=== PATIENT | female | born 1945 | race Caucasian/White ===

== ENCOUNTER 2018-07-05 15:46 | Inpatient (IN) | payer OTHER ==
[2018-07-05] MEDS ORDERED: oxyCODONE IR 5 MG TAB PO PRN (16:26)
[2018-07-05] MEDS ORDERED: SENNOSIDES 1 TAB PO PRN (16:51)
[2018-07-05] MEDS: oxyCODONE IR 5 MG TAB PO PRN ×2 (17:05→20:10)
--- NOTE | 2018-07-05 17:21 | PDOREHIP ---
Admission [facility] - Admission - 3 Day Assessment Period Admission Date/Day 1: 07/05/18 Day 2: 07/06/18 Day 3: 07/07/18 - Active Diagnoses Comorbidities and Co-existing Conditions at Admission: [id number]. PVD or PAD - Skin Conditions Unhealed Pressure Ulcer (1 or more/Stage 1 or >)-Admission: 0. No # Stage 1 Pressure Ulcers-Admission: 0 # Stage 2 Pressure Ulcers-Admission: 0 # Stage 3 Pressure Ulcers-Admission: 0 # Stage 4 Pressure Ulcers-Admission: 0 # Unstageable Pressure Ulcers (Non-remove Dress)-Admission: 0 # Unstageable Pressure Ulcers (Slough/Eschar)-Admission: 0 # Unstageable Pressure Ulcers (Deep Tissue Injury)-Admission: 0
[2018-07-05] MEDS: ACETAMINOPHEN 500 MG TAB PO SCH ×2 (18:07→23:12)
--- NOTE | 2018-07-05 18:07 | GHP ---
POST ADMISSION PHYSICIAN EVALUATION AND REHABILITATION TREATMENT PLAN DATE OF ADMISSION: 07/05/2018 DATE OF EVALUATION: 07/05/2018. TIME OF EVALUATION: 1615. REFERRING FACILITY: [facility]. REFERRING PHYSICIAN: Dr. Starr IMPAIRMENT GROUP: 5.3. DATE OF ONSET: 06/11/2018. CONSULTING PHYSICIANS: There was consultation with the Internal Medicine service. REHABILITATION DIAGNOSIS: Debility status post right ygjks-cjn-knmo amputation. ETIOLOGIC DIAGNOSIS: Unilateral lower limb above the knee. DATE OF SURGERY: 06/24/2018. HISTORY OF PRESENT ILLNESS: This patient has a history of peripheral vascular disease with multiple prior procedures on the right lower extremity. She was admitted to [facility] on 06/11/2018, with signs and symptoms of critical limb ischemia. In the hospital, she had multiple procedures which ultimately were unsuccessful and there was a njxgr-iif-lajs amputation, which subsequently became necrotic. Finally, there was an above-the -knee amputation. The hospital complications included hospital-acquired pneumonia, loose stools with a negative testing for Clostridium difficile, delirium, hypertension, leukocytosis, anemia for which there was a bone marrow biopsy which ruled out malignancy, peripheral neuropathy, phantom limb pain, and rhabdomyolysis. She was eventually medically stabilized and was appropriate for inpatient rehabilitation. STUDIES AND LABS IN THE HOSPITAL: Yesterday, sodium was slightly low at 135 and BUN was high at 31 with a creatinine of 0.6. Otherwise, a basic metabolic profile was normal. Liver function tests on July 02 showed an elevated alkaline phosphatase at 254 and a low albumin at 2.8. There was an elevated lipase on July 02, at 594. Hematology on July 04, showed an elevated white count of 19.23, which had been stable since the previous day. Hemoglobin was 8.4, hematocrit was 27.6, platelet count was 203. PRECAUTIONS: She is a fall risk. ACTIVE COMORBIDITIES: She has no tier 1, tier 2, or tier 3 comorbidities. PAST MEDICAL HISTORY: 1. Peripheral vascular disease due to intimal hyperplasia. 2. Hypertension. 3. Rheumatic fever. 4. Peripheral neuropathy. PAST SURGICAL HISTORY: She has had multiple vascular angioplasties and bypass procedures on the right lower extremity. PRE-HOSPITAL MEDICATIONS: 1. Carvedilol 25 mg p.o. b.i.d. with meals. 2. Clopidogrel 75 mg p.o. daily. 3. Amlodipine 10 mg p.o. daily. 4. Aspirin 81 mg p.o. daily. 5. Gabapentin 600 mg p.o. b.i.d. 6. Furosemide 40 mg p.o. b.i.d. 7. Oxycodone 5 mg p.o. q.4 hours p.r.n. ALLERGIES: There are no drug allergies, but there are allergies listed to alcohol which causes migraines, pickles which cause mouth sores, coffee which causes migraines, and tomato which causes mouth sores. PSYCHOSOCIAL HISTORY: She is . She lives with her . 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 She is a nonsmoker and does not use alcohol. FAMILY HISTORY: Father had diabetes mellitus type 2. Mother had multiple sclerosis. REVIEW OF SYSTEMS: She reports that she has pain. There is phantom limb pain and there is also incisional pain and she has some pain on her right pelvis where the bone marrow biopsy was done. She is ready for her next oxycodone dose. She denies cough or dyspnea fevers or chills, nausea or vomiting. She has a reduced appetite and she has had frequent soft stools, but not aquiles diarrhea. She has no dysuria or urinary frequency. She denies headache, vision changes, weakness, numbness or tingling of the extremities. She denies difficulty swallowing. She reports poor sleep. Often, she reports poor sleep for 2 nights in a row and on the 3rd night she will have a good night's sleep. She has not been sleeping well lately in the hospital. Otherwise, a 10-point review of systems is negative. PHYSICAL EXAM: VITAL SIGNS: Blood pressure is 151/98, heart rate is 77, respiratory rate is 18, oxygen saturation is 95% on room air. Temperature is 36.8 degrees centigrade. Her weight is 47.9 kg for a body mass index of 19.3. GENERAL: This is a well-nourished, well-developed, but pale and chronically ill -appearing woman, sitting up in bed, dressed in street clothes, cooperative and in no acute distress. HEENT: Extraocular movements are intact. Pupils are equal, round, reactive to light. Mucous membranes are moist. Dentition is in good condition. She has an uncrowded airway, Mallampati class 1. NECK: Supple. HEART: There is a regular rate and rhythm with no murmurs, rubs, or gallops. LUNGS: Clear to auscultation bilaterally. ABDOMEN: Soft, nontender , nondistended with normoactive bowel sounds and no hepatosplenomegaly. EXTREMITIES: She has a right-sided bqakh-ojj-ugrq amputation. Her left lower extremity is without edema or clubbing. Dorsalis pedis pulses 2+. There is no cyanosis in the extremities. NEUROLOGIC: She is alert and oriented x3. Cranial nerves 2-12 are grossly intact. There is no focal weakness. Sensation is intact to light touch. SKIN: There is mild erythema over the coccyx and proximal medial buttocks. It is blanching and there is no skin breakdown. There is no erythema, drainage, or swelling at the site of the bone marrow biopsy over her right posterior pelvis. CURRENT LEVEL OF FUNCTION PER THE PRE-ADMISSION SCREEN: Regarding diet, feeding , and swallowing, she was taking a regular diet. For grooming, she required standby assist for setup to brush her teeth and brush her hair while seated. Regarding dressing, she was dependent to don her stump protector. Bed mobility required minimal assist for supine to sit on the edge of the bed or standby assist with the head of the bed elevated. Transfers required moderate assistance on her left lower extremity from the edge of the bed for sit to stand using a front-wheeled walker and minimal assist to pivot or hop to a recliner. Balance seated required standby assist. Endurance was fair. She was able to ambulate 3 feet with a front-wheeled walker with contact guard to standby assist and a 2nd person, and she was able to ambulate 10 feet with contact guard assist of 1 person and standby assist of 1 using small steps. She was considered to have normal cognition and communication. On today's exam, there is no change from the preadmission screen. IMPRESSION: This is a 73-year-old woman with long-standing peripheral vascular disease due to intimal hyperplasia, especially on the right lower extremity. She has had multiple procedures on the right lower extremity but was rehospitalized with critical limb ischemia. She had further vascular procedures , a right-sided bjany-kpy-zsxp amputation, continued issues with poor blood flow and necrotic tissue, and finally a right-sided luzix-wnc-icqa amputation. She had a complicated hospital course including hospital-acquired pneumonia, abnormalities in her blood counts including anemia, a low reticulocyte count, thrombocytopenia and leukocytosis, but a bone marrow biopsy that was negative for malignancy. There is a history of essential thrombocytosis. She had hyponatremia. She had adjustment of medications for hypertension. She ultimately was stabilized and is appropriate for inpatient rehabilitation. Her goal is to complete a rehabilitation stay and return home with her and supportive services. For a safe discharge, she will need to achieve modified independence for eating, grooming, bed mobility, toileting, dressing, and transfers. She will need to be able to ambulate with a front-wheeled walker for household distances and negotiate a flight of stairs using a crutch with supervision. She may continue to require assistance with bathing. She will need to have adequate pain management and her incision will need to be healing well. She will likely need assistance for household management, and shopping. She will have therapy with physical therapy and occupational therapy for 90 minutes per day for each discipline on 5-7 days per week. Her expected duration of stay is 7-10 days. It is expected that upon discharge, she will continue to benefit from home health services including nursing, a nurse's aide, occupational therapy and physical therapy. Additionally, she will benefit from an amputation support group. PLAN: 1. Debility status post right-sided tierb-fwe-uhgn amputation on 06/24/2018. PT and OT to optimize mobility and activities of daily living toward the independent to modified-independent level. 2. Hypertension. She has an elevated blood pressure on admission today. Continue current medications and monitor her blood pressure given that she is already on maximal dose of amlodipine and a high dose of carvedilol. Next step might be a diuretic or an ALEN inhibitor or ARB. She had mild dehydration on her labs in the hospital, so might hesitate with a diuretic. Will order a basic metabolic profile in the morning to assess her renal function and hydration status. 3. Peripheral vascular disease. Continue aspirin and clopidogrel. 4. Pain including phantom limb pain. Continue gabapentin. Continue oxycodone. Adjust medications as needed. 5. Insomnia this is partly a chronic issue for her, but it is her best interest to have adequate sleep so that she can have maximal participation in rehabilitation. I have ordered melatonin at 3 mg scheduled at bedtime and trazodone 50 mg at bedtime as needed if the melatonin does not work. It is likely that melatonin will lose its efficacy after several days to a week at which point it could be discontinued or changed to as needed. The trazodone might need to be scheduled. 6. Leukocytosis, anemia, and history of essential thrombocytosis. There is no malignancy. The anemia is likely related to chronic disease as there is a report in the hospital notes of a low TIBC as well as a low iron. I have ordered a CBC for the morning as well as a reticulocyte count and an iron panel. If she is recovering from the chronic disease condition, she may have an improved reticulocyte count and she may be frankly iron deficient after her surgeries. 7. Hospital-acquired pneumonia appears to have been fully treated and she is not needing any oxygen at present. We will continue incentive spirometry. 8. Diarrhea, likely was antibiotic-associated and possibly due to use of laxatives. As she is on opiates, will order senna on a p.r.n. basis. She has had a negative test for Clostridium difficile. 9. Prophylaxis. It is unclear whether she requires any pharmacologic prophylaxis. She was treated with heparin at the hospital. Continue aspirin and clopidogrel. 10. Followup: She is to follow up with vascular surgeon, Dr. Starr, or his physician ophthalmic medical assistant on 07/26/2018, at 10:45 a.m. at the Vascular [place] of the [facility] at [facility]. Wound lyle are to remain until she is seen in clinic. Liu-Schmid drain can be removed when output is less than 100 cc per day. The clinic phone number is [phone]. /[id number]/MODL MTDD
[2018-07-05] MEDS: CARVEDILOL 25 MG TAB PO SCH (18:08)
[2018-07-05] MEDS: MELATONIN 3 MG TAB PO SCH (20:49)
[2018-07-05] MEDS: GABAPENTIN 300 MG CAP PO SCH (20:49)
[2018-07-06] MEDS: ACETAMINOPHEN 500 MG TAB PO SCH ×4 (05:53→23:59)
[2018-07-06] MEDS: GABAPENTIN 300 MG CAP PO SCH ×3 (05:53→20:24)
[2018-07-06] MEDS: oxyCODONE IR 5 MG TAB PO PRN ×5 (08:01→20:27)
[2018-07-06] MEDS: CLOPIDOGREL BISULFATE 75 MG TAB PO SCH (08:02)
[2018-07-06] MEDS: CARVEDILOL 25 MG TAB PO SCH ×2 (08:02→17:16)
[2018-07-06] MEDS: ASPIRIN EC 81 MG TAB PO SCH (08:02)
[2018-07-06 08:16] LABS: PLATELET COUNT 196 10^3/uL (150-400)
--- NOTE | 2018-07-06 13:03 | SOAPPROG ---
SOAP Progress Note Assessment/Plan: Assessment: DEBILITY-status post right-sided above knee amputation. Incision looks good. She has a little bit of hypersensitivity distally. She would benefit from desensitize a sabillon techniques. Physical occupational therapy to optimize mobility and activities of daily living towards the independent to modified independent level Hypertension -currently on amlodipine 10 mg q.day and carvedilol 50 mg twice daily. Blood pressure this morning was 153/94. She had mild dehydration on her labs in the hospital so a diuretic should be used with caution. Labs from this morning as follows: Sodium 136, potassium 4.6, BUN 23, creatinine 0.6.. Will add lisinopril 2.5 mg q.a.m.. Discussed with Pharmacy who verified that there are no significant cross reactants with her current med list Peripheral vascular disease-continue aspirin and clopidogrel. Dr. Agudelo was unclear as to why she was on a statin and this should be further early discussed with patient prior to discharge. Phantom limb pain-continue gabapentin. Current dose is 600/600/900. Will consider increasing this to 2700 daily. She has oxycodone written for 5-10 mg q.3 hours. Recommend desensitization techniques to residual limb Insomnia-there is some indication that this may be a chronic condition. Melatonin 3 mg at bedtime as well as trazodone 50 mg at bed tone as needed if the melatonin does not work. Leukocytosis-patient reports this is secondary to a central thrombocytosis. CBC ordered for this morning. Reticulocyte an iron panel is pending. Hospital acquired pneumonia-previously treated. Currently asymptomatic. Breath sounds are clear Diarrhea-most likely antibiotic associated and also possibly due to use of laxatives. Since she is on opioids she has senna on order for a p.r.n. Basis. Stool sample was negative for Clostridium difficile DVT prophylaxis continue aspirin and clopidogrel Follow-up: She is to follow up with vascular surgeon, Dr. Starr or his PA on 07/26/2018 at 10:45 a.m. at the vascular [place] of the [facility]. Wound lyle are to remain until she is seen in clinic. Liu-Schmid drain can be removed when output is less than 100 cc per day. The clinic phone number is [phone] Plan: 07/06/18 13:03 Subjective: SHE REPORTS SIGNIFICANT PHANTOM LIMB PAIN WHICH SHE RATES 8/10. SHE DENIES INCISIONAL PAIN. SHE REPORTS THAT SHE HAD A BAD NIGHT LAST NIGHT AND FELT DELIRIOUS. SHE IS UNSURE IF SHE TOOK ANY PAIN MEDICATIONS. SHE ALSO REPORTS THAT DUE TO ESSENTIAL THROMBOCYTOPENIA, HER WHITE COUNT TENDS TO RUN AROUND 13. Objective: Vital Signs Temp Pulse Resp BP Pulse Ox 36.8 C 64 16 153/94 H 94 07/06/18 06:07 07/06/18 06:07 07/06/18 06:07 07/06/18 06:07 07/06/18 06:07 Laboratory Results 07/06/18 06:15 07/06/18 06:15 07/05/18 07/06/18 07/07/18 05:59 05:59 05:59 Intake Total 450 240 Output Total 1600 Balance -1150 240 Physical Exam - Physical Exam General Appearance: WD/WN, alert, no apparent distress Respiratory: lungs clear, normal breath sounds Abdomen: non-tender, soft Skin: normal color, warm/dry, other (RIGHT ABOVE KNEE AMPUTATION RESIDUAL LIMB IS INSPECTED AFTER THE DRESSING IS REMOVED. SUTURES AND LYLE IN PLACE. SMALL AMOUNT OF INCISIONAL ERYTHEMA. NO INDURATION. NO DISCHARGE. THE PROXIMAL DRAIN IN PLACE AND DRAINING WELL.) Extremities: No swelling, No Misael's sign (FULL RIGHT KNEE EXTENSION, 95 RIGHT KNEE FLEXION) Neuro/Psych: No motor weakness (5/5 STRENGTH RIGHT HIP FLEXORS, HIP ABDUCTORS) ICD10 Worksheet Patient Problems: Problems Problem Status Onset Above knee amputation of right lower extremity Acute HTN (hypertension) Acute
[2018-07-06] MEDS: LISINOPRIL 2.5 MG TAB PO SCH (14:13)
[2018-07-06] MEDS: MELATONIN 3 MG TAB PO SCH (20:24)
[2018-07-07] MEDS: ACETAMINOPHEN 500 MG TAB PO SCH ×3 (05:53→17:43)
[2018-07-07] MEDS: GABAPENTIN 300 MG CAP PO SCH (05:53)
[2018-07-07] MEDS: oxyCODONE IR 5 MG TAB PO PRN ×7 (07:33→22:02)
[2018-07-07] MEDS: CLOPIDOGREL BISULFATE 75 MG TAB PO SCH (08:35)
[2018-07-07] MEDS: CARVEDILOL 25 MG TAB PO SCH ×2 (08:35→17:43)
[2018-07-07] MEDS: ASPIRIN EC 81 MG TAB PO SCH (08:35)
[2018-07-07] MEDS: LISINOPRIL 2.5 MG TAB PO SCH (08:35)
--- NOTE | 2018-07-07 09:48 | SOAPPROG ---
SOAP Progress Note Assessment/Plan: Assessment: DEBILITY-status post right above knee amputation. Incision looks good. She has a little bit of hypersensitivity distally. She would benefit from desensitize a sabillon techniques. Physical occupational therapy to optimize mobility and activities of daily living towards the independent to modified independent level Hypertension -Currently on amlodipine 10 mg q.day and carvedilol 50 mg twice daily. ADDED LISINOPRIL 2.5 MG Q.A.M. BEGINNING YESTERDAY. BLOOD PRESSURE THIS MORNING 125/90. HEART RATE 72 AND REGULAR. Labs from YESTERDAY as follows: Sodium 136, potassium 4.6, BUN 23, creatinine 0.6.. Will add lisinopril 2.5 mg q.a.m.. RETICULOCYTE COUNT HIGH AT 4.05. RED BLOOD CELL COUNT LOW AT 2.98. 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 Dr. Agudelo was unclear as to why she was on a statin and this should be further early discussed with patient prior to discharge. Phantom limb pain-continue gabapentin. Current dose is 600/600/900. WILL INCREASE GABAPENTIN TO 900 MG THREE TIMES DAILY. INFORMED PATIENT OF MEDICATION DOSE CHANGE. She has oxycodone written for 5-10 mg q.3 hours. Recommend desensitization techniques to residual limb Insomnia-there is some indication that this may be a chronic condition. Melatonin 3 mg at bedtime as well as trazodone 50 mg at bed tone as needed if the melatonin does not work. SHE CURRENTLY DOES NOT 1 OF SLEEP A Leukocytosis-patient reports this is secondary to ESSENTIAL thrombocytosis. Hospital acquired pneumonia-previously treated. Currently asymptomatic. Breath sounds are clear Diarrhea-most likely antibiotic associated and also possibly due to use of laxatives. Since she is on opioids she has senna on order for a p.r.n. Basis. Stool sample was negative for Clostridium difficile DVT prophylaxis continue aspirin and clopidogrel Follow-up: She is to follow up with vascular surgeon, Dr. Starr or his PA on 07/26/2018 at 10:45 a.m. at the vascular [place] of the [facility]. Wound lyle are to remain until she is seen in clinic. Liu-Schmid drain can be removed when output is less than 100 cc per day. The clinic phone number is [phone] Plan: 07/06/18 13:03 07/07/18 09:48 Subjective: She reports feeling sleepy during the daytime. She does not want a sleep aid. She does not feel dizzy or lightheaded. She reports right phantom limb pain as bothersome and rated as 8/10. Objective: Vital Signs Temp Pulse Resp BP Pulse Ox 37.1 C 70 16 125/90 H 96 07/07/18 08:00 07/07/18 08:00 07/07/18 08:00 07/07/18 08:00 07/07/18 08:00 Laboratory Results 07/06/18 06:15 07/06/18 06:15 07/06/18 07/07/18 07/08/18 05:59 05:59 05:59 Intake Total 450 460 Output Total 1600 858 954 Balance -7374 -222 -857 Physical Exam - Physical Exam General Appearance: WD/WN, alert, no apparent distress EENT: other (Conjunctiva are not pale), No scleral icterus (R), No scleral icterus (L) Respiratory: lungs clear, normal breath sounds Extremities: No swelling, No Misael's sign Neuro/Psych: motor weakness, No cognition abnormalities ICD10 Worksheet Patient Problems: Problems Problem Status Onset Above knee amputation of right lower extremity Acute HTN (hypertension) Acute
[2018-07-07] MEDS: GABAPENTIN 400 MG CAP PO SCH ×2 (14:59→22:02)
[2018-07-07] MEDS: MELATONIN 3 MG TAB PO SCH (22:02)
[2018-07-08] MEDS: ACETAMINOPHEN 500 MG TAB PO SCH ×4 (01:06→20:01)
[2018-07-08] MEDS: oxyCODONE IR 5 MG TAB PO PRN ×3 (01:06→08:26)
[2018-07-08] MEDS: CARVEDILOL 25 MG TAB PO SCH ×2 (08:27→17:53)
[2018-07-08] MEDS: CLOPIDOGREL BISULFATE 75 MG TAB PO SCH (08:29)
[2018-07-08] MEDS: LISINOPRIL 2.5 MG TAB PO SCH (08:29)
[2018-07-08] MEDS: GABAPENTIN 400 MG CAP PO SCH ×3 (08:29→20:02)
[2018-07-08] MEDS: ASPIRIN EC 81 MG TAB PO SCH (08:29)
--- NOTE | 2018-07-08 11:21 | SOAPPROG ---
SOAP Progress Note Assessment/Plan: Assessment: DEBILITY-status post right above knee amputation. Residual limb distal incision with lyle and sutures in place. She is not scheduled to have follow -up with her surgeon until 07/26, however have asked case management contact her surgeon to see this can be moved up and also advise date of suture and staple removal. She has a little bit of hypersensitivity distally. She would benefit from desensitize a sabillon techniques. This was discussed with Physical therapy today during team conference. Physical occupational therapy to optimize mobility and activities of daily living towards the independent to modified independent level. DISCUSSED IN TEAM MEETING TODAY. CURRENT FIM SCORE IS 89. Hypertension -Currently on amlodipine 10 mg q.day and carvedilol 50 mg twice daily. ADDED LISINOPRIL 2.5 MG Q.A.M. . BLOOD PRESSURE THIS MORNING 153/93 if subsequent blood pressure checks later today remain elevated then will increase lisinopril to 5 mg q.a.m. RETICULOCYTE COUNT HIGH AT 4.05. RED BLOOD CELL COUNT LOW AT 2.98. 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 Dr. Agudelo was unclear as to why she was on a statin and this should be further early discussed with patient prior to discharge. Phantom limb pain-continue gabapentin. Decided to increase gabapentin to 800 three times daily instead of 900 three times daily. INFORMED PATIENT OF MEDICATION DOSE CHANGE. Pain management continues to be an issue. She is clearly over sedated this morning, nodding off several times during patient interview. Had long discussion regarding pain management strategy with patient today in presence of her nurse, Jud. Strategy will include beginning OxyContin 10 mg ID and oxycodone IR 5 mg q.4 hours p.r.n. breakthrough pain. Also changed to Tylenol to 1000 mg q.8 hours as the previous order was for 1000 mg Q 6 hr. Informed patient of opioid medication changes. She should only be given the oxycodone IR 5 mg for breakthrough pain greater than 6 Insomnia-there is some indication that this may be a chronic condition. Melatonin 3 mg at bedtime as well as trazodone 50 mg at bed tone as needed if the melatonin does not work. She was also encouraged to ask for the trazodone 50 mg at night in an attempt to decrease her tendency to ask for opioids to help her sleep. Leukocytosis-patient reports this is secondary to ESSENTIAL thrombocytosis. Hospital acquired pneumonia-previously treated. Currently asymptomatic. Breath sounds are clear Diarrhea-most likely antibiotic associated and also possibly due to use of laxatives. Since she is on opioids she has senna on order for a p.r.n. Basis. Stool sample was negative for Clostridium difficile DVT prophylaxis continue aspirin and clopidogrel LOWER ABDOMINAL MASS-POSSIBLY CHRONIC. WILL OBTAIN ABDOMINAL ULTRASOUND TODAY FOR FURTHER EVALUATION OF THIS. Follow-up: She is to follow up with vascular surgeon, Dr. Starr or his PA on 07/26/2018 at 10:45 a.m. at the vascular [place] of [facility]. Wound lyle are to remain until she is seen in clinic. Liu-Schmid drain can be removed when output is less than 100 cc per day. The clinic phone number is [phone] Plan: 07/06/18 13:03 07/07/18 09:48 07/08/18 11:22 07/08/18 11:26 Subjective: She is over sedated this morning. Nursing reports that she took oxycodone q.3 hours beginning last p.m.. She reports that she is taking this at night to help her sleep as well as every 3 hr during the day in anticipation of having increased right lower extremity pain. Today she reported right lower extremity phantom pain as 6/10. Objective: Vital Signs Temp Pulse Resp BP Pulse Ox 36.4 C 68 16 155/93 H 97 07/08/18 08:00 07/08/18 08:00 07/08/18 08:00 07/08/18 08:00 07/08/18 08:00 Laboratory Results 07/06/18 06:15 07/06/18 06:15 07/07/18 07/08/18 07/09/18 05:59 05:59 05:59 Intake Total 460 530 200 Output Total 291 2557 15 Balance -914 -0518 185 Physical Exam - Physical Exam General Appearance: other (Over sedated and nods out several times during patient interview with myself and nursing staff) Respiratory: lungs clear, normal breath sounds Cardiac/Chest: No edema Abdomen: normal bowel sounds, non-tender, soft, other (6 cm x 3 cm hard mass lower abdominal region which patient states was present from previous hospitalization, possibly from Lovenox injections) Skin: other (There is some erythema at the base of the JANY drain site. Sutures and lyle in place right residual limb and right groin. No erythema, induration or discharge.) Extremities: No swelling, No Misael's sign ICD10 Worksheet Patient Problems: Problems Problem Status Onset Above knee amputation of right lower extremity Acute HTN (hypertension) Acute
[2018-07-08] MEDS: traZODone 50 MG TAB PO PRN (20:02)
[2018-07-08] MEDS: MELATONIN 3 MG TAB PO SCH (23:22)
[2018-07-09] MEDS: oxyCODONE IR 5 MG TAB PO PRN ×2 (02:03→15:38)
[2018-07-09] MEDS: ACETAMINOPHEN 500 MG TAB PO SCH ×3 (05:40→21:36)
[2018-07-09] MEDS: LISINOPRIL 2.5 MG TAB PO SCH (08:46)
[2018-07-09] MEDS: GABAPENTIN 400 MG CAP PO SCH (08:46)
[2018-07-09] MEDS: CARVEDILOL 25 MG TAB PO SCH ×2 (08:47→18:15)
[2018-07-09] MEDS: ASPIRIN EC 81 MG TAB PO SCH (08:47)
[2018-07-09] MEDS: CLOPIDOGREL BISULFATE 75 MG TAB PO SCH (08:47)
--- NOTE | 2018-07-09 11:16 | SOAPPROG ---
SOAP Progress Note Assessment/Plan: Assessment: DEBILITY-status post right above knee amputation. WILL DISCUSS WITH PHYSICAL THERAPY TO SEE IF A LESS VOLUMINOUS RESIDUAL LIMB SPLIT CAN BE OBTAINED. Residual limb distal incision with lyle and sutures in place. She is not scheduled to have follow-up with her surgeon until 07/26, however have asked case management contact her surgeon to see this can be moved up and also advise date of suture and staple removal. She has a little bit of hypersensitivity distally. She would benefit from desensitize a sabillon techniques. This was discussed with Physical therapy today during team conference. Physical occupational therapy to optimize mobility and activities of daily living towards the independent to modified independent level. DISCUSSED IN TEAM MEETING TODAY. CURRENT FIM SCORE IS 89. Hypertension -BLOOD PRESSURE THIS MORNING SLIGHT ELEVATED AT 142/92, HOWEVER PRIOR BLOOD PRESSURE 102/56. THEREFORE WILL NOT MAKE ANY NEW CHANGES TO HER ANTIHYPERTENSIVES. Currently on amlodipine 10 mg q.day and carvedilol 50 mg twice daily. ADDED LISINOPRIL 2.5 MG Q.A.M. . BLOOD PRESSURE THIS MORNING 153/ 93 if subsequent blood pressure checks later today remain elevated then will increase lisinopril to 5 mg q.a.m. RETICULOCYTE COUNT HIGH AT 4.05. RED BLOOD CELL COUNT LOW AT 2.98. 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 Dr. Agudelo was unclear as to why she was on a statin and this should be further early discussed with patient prior to discharge. Phantom limb pain-continue gabapentin. WILL INCREASE GABAPENTIN TO 900 THREE TIMES DAILY TODAY. INFORMED PATIENT OF MEDICATION DOSE CHANGE. Pain management continues to be an issue. She is clearly over sedated this morning, nodding off several times during patient interview. Had long discussion regarding pain management strategy with patient YESTERDAY in presence of her nurse, Jud. Strategy will include beginning OxyContin 10 mg ID and oxycodone IR 5 mg q.4 hours p.r.n. breakthrough pain. Also changed to Tylenol to 1000 mg q.8 hours as the previous order was for 1000 mg Q 6 hr. Informed patient of opioid medication changes. She should only be given the oxycodone IR 5 mg for breakthrough pain greater than 6 Insomnia-PATIENT REPORTS SHE SLEPT BETTER LAST NIGHT BUT DID NOT ASK FOR TRAZODONE. AGAIN SHE WAS REMINDED TO ASK FOR TRAZODONE FOR INSOMNIA OPPOSED TO ASKING FOR OXYCODONE. there is some indication that this may be a chronic condition. Melatonin 3 mg at bedtime as well as trazodone 50 mg at bed tone as needed if the melatonin does not work. She was also encouraged to ask for the trazodone 50 mg at night in an attempt to decrease her tendency to ask for opioids to help her sleep. Leukocytosis-patient reports this is secondary to ESSENTIAL thrombocytosis. Hospital acquired pneumonia-previously treated. Currently asymptomatic. Breath sounds are clear Diarrhea-most likely antibiotic associated and also possibly due to use of laxatives. Since she is on opioids she has senna on order for a p.r.n. Basis. Stool sample was negative for Clostridium difficile DVT prophylaxis continue aspirin and clopidogrel LOWER ABDOMINAL MASS-ABDOMINAL ULTRASOUND OBTAINED YESTERDAY. RESULTS DISCUSSED WITH RADIOLOGIST OF [facility] WHO INFORMED THAT THIS MOST LIKELY WAS CHRONIC DUE TO SEROMA AND FIBROTIC WALL. DISCUSSED RESULTS WITH PATIENT TODAY. Follow-up: She is to follow up with vascular surgeon, Dr. Starr or his PA on 07/26/2018 at 10:45 a.m. at the vascular [place] [facility]. Wound lyle are to remain until she is seen in clinic. Liu-Schmid drain can be removed when output is less than 100 cc per day. The clinic phone number is [phone] Plan: 07/06/18 13:03 07/07/18 09:48 07/08/18 11:22 07/08/18 11:26 07/09/18 11:13 Subjective: She reports that she slept better last night. She feels rested this morning. She feels much less sedated since her pain medications were changed yesterday. She has some pain in the left great toe. Objective: Vital Signs Temp Pulse Resp BP Pulse Ox 36.6 C 73 16 142/92 H 93 07/09/18 05:40 07/09/18 05:40 07/09/18 05:40 07/09/18 05:40 07/09/18 05:40 Laboratory Results 07/06/18 06:15 07/06/18 06:15 07/08/18 07/09/18 07/10/18 05:59 05:59 05:59 Intake Total 530 945 430 Output Total 6025 1761 200 [facility] -[phone] Physical Exam - Physical Exam General Appearance: WD/WN, alert, other (Much more alert) Respiratory: lungs clear, normal breath sounds Abdomen: normal bowel sounds, non-tender, soft Extremities: No swelling, No Misael's sign ICD10 Worksheet Patient Problems: Problems Problem Status Onset Above knee amputation of right lower extremity Acute HTN (hypertension) Acute
[2018-07-09] MEDS: GABAPENTIN 300 MG CAP PO SCH ×2 (15:38→20:14)
[2018-07-09] MEDS: MELATONIN 3 MG TAB PO SCH (20:14)
[2018-07-09] MEDS ORDERED: CALCIUM CARBONATE 500 MG CHEWABLE TAB PO PRN (20:55)
[2018-07-09] MEDS: traZODone 50 MG TAB PO PRN (21:37)
[2018-07-10] MEDS: ACETAMINOPHEN 500 MG TAB PO SCH ×3 (06:25→21:40)
[2018-07-10] MEDS: CLOPIDOGREL BISULFATE 75 MG TAB PO SCH (08:50)
[2018-07-10] MEDS: LISINOPRIL 2.5 MG TAB PO SCH (08:50)
[2018-07-10] MEDS: GABAPENTIN 300 MG CAP PO SCH ×3 (08:50→21:40)
[2018-07-10] MEDS: ASPIRIN EC 81 MG TAB PO SCH (08:50)
[2018-07-10] MEDS: CARVEDILOL 25 MG TAB PO SCH ×2 (08:50→17:16)
--- NOTE | 2018-07-10 09:39 | SOAPPROG ---
SOAP Progress Note Assessment/Plan: Assessment: DEBILITY-status post right above knee amputation. WILL DISCUSS WITH PHYSICAL THERAPY TO SEE IF A LESS VOLUMINOUS RESIDUAL LIMB SPLINT CAN BE OBTAINED. She would benefit from desensitization techniques. This was discussed with Physical therapy during team conference. Physical and occupational therapy to optimize mobility and activities of daily living towards the independent to modified independent level. DISCUSSED IN TEAM MEETING on Wednesday. CURRENT FIM SCORE IS 89. She would benefit from some bedside upper extremity exercises to strengthen shoulder stabilizers and triceps in preparation for ambulating increasing distances with the FWW. WOUND CARE- Residual limb distal incision with lyle and sutures in place. THE MEDIAL ASPECT OF INCISION IS SLIGHTLY ERYTHEMATOUS AND THEREFORE I ASKED NURSING TODAY TO DELINEATE THIS WITH A SKIN MARKER. DR. AGUDELO TO CHECK IN THE MORNING AND IF THE ERYTHEMA EXPANDS BEYOND THIS DELINEATION THEN MAY WANT TO CONSIDER ANTIBIOTICS FOR THIS. She is not scheduled to have follow-up with her surgeon until 07/26, however have asked case management contact her surgeon to see this can be moved up and also advise date of suture and staple removal. She has a little bit of hypersensitivity distally. HEMATOMA- LEFT OCCIPITAL REGION SECONDARY TO FALL OUT OF BED EARLIER THIS MORNING. NO MENTAL STATUS CHANGES OR NEW ONSET NEUROLOGICAL DEFICIT REPORTED BY NURSING STAFF OR PATIENT. NURSING REPORTS THAT THE HEMATOMA IS ACTUALLY RESOLVING. PATIENT COUNSELED NOT TO SIT UP IN BED DURING NIGHT AND THAT SHE NEEDS TO CHANGE HEAD POSITION THEN TO ELEVATE HEAD OF BED. SHOULDER CONTUSION-ALSO SECONDARY TO FALL EARLIER THIS MORNING. NORMAL IN PAIN- FREE LEFT GLENOHUMERAL RANGE OF MOTION. NEGATIVE SCARF SIGN. NO TENDERNESS OVER THE ACROMION OR AC JOINT. Hypertension -BLOOD PRESSURE THIS MORNING 125/83 Currently on amlodipine 10 mg q.day and carvedilol 50 mg twice daily. ADDED LISINOPRIL 2.5 MG Q.A.M. RETICULOCYTE COUNT HIGH AT 4.05. RED BLOOD CELL COUNT LOW AT 2.98. 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 Dr. Agudelo was unclear as to why she was on a statin and this should be further early discussed with patient prior to discharge. Phantom limb pain-continue gabapentin. GABAPENTIN INCREASED TO 900 THREE TIMES DAILY YESTERDAY. INFORMED PATIENT OF MEDICATION DOSE CHANGE. Pain management continues to be an issue. She is clearly over sedated this morning, nodding off several times during patient interview. Had long discussion regarding pain management strategy with patient YESTERDAY in presence of her nurse, Jud. Strategy will include beginning OxyContin 10 mg ID and oxycodone IR 5 mg q.4 hours p.r.n. breakthrough pain. Also changed to Tylenol to 1000 mg q.8 hours as the previous order was for 1000 mg Q 6 hr. Informed patient of opioid medication changes. She should only be given the oxycodone IR 5 mg for breakthrough pain greater than 6 Insomnia-. AGAIN SHE WAS REMINDED TO ASK FOR TRAZODONE FOR INSOMNIA OPPOSED TO ASKING FOR OXYCODONE. there is some indication that this may be a chronic condition. Melatonin 3 mg at bedtime as well as trazodone 50 mg at bed tone as needed if the melatonin does not work. She was also encouraged to ask for the trazodone 50 mg at night in an attempt to decrease her tendency to ask for opioids to help her sleep. Leukocytosis-patient reports this is secondary to ESSENTIAL thrombocytosis. Hospital acquired pneumonia-previously treated. Currently asymptomatic. Breath sounds are clear Diarrhea-most likely antibiotic associated and also possibly due to use of laxatives. Since she is on opioids she has senna on order for a p.r.n. Basis. Stool sample was negative for Clostridium difficile DVT prophylaxis continue aspirin and clopidogrel. PLAVIX AND ASA WAS NOT HELD DUE TO FALL LAST NIGHT BECAUSE NEURO CHECKS WERE NORMAL LOWER ABDOMINAL MASS-ABDOMINAL ULTRASOUND OBTAINED YESTERDAY. RESULTS DISCUSSED WITH RADIOLOGIST OF [facility] WHO INFORMED THAT THIS MOST LIKELY WAS CHRONIC DUE TO SEROMA AND FIBROTIC WALL. DISCUSSED RESULTS WITH PATIENT TODAY. Follow-up: She is to follow up with vascular surgeon, Dr. Starr or his PA on 07/26/2018 at 10:45 a.m. at the vascular [place] [facility]. Wound lyle are to remain until she is seen in clinic. Liu-Schmid drain can be removed when output is less than 100 cc per day. The clinic phone number is [phone] Plan: 07/06/18 13:03 07/07/18 09:48 07/08/18 11:22 07/08/18 11:26 07/09/18 11:13 11/11/18 09:41 Subjective: Was called regarding patient at 2:00 a.m. This morning. Patient fell over left side of bed while sitting up in bed. Apparently lower bed rail on that side was not elevated. She reports struck her head on the left side and the top of her left shoulder. There was no loss of consciousness. Immediately following the fall there were no mental status changes and no new neurological deficits per nursing evaluation. Ordered neuro checks every 0.5 hr for the next 2 hr which were reported negative per nursing this morning. This morning patient states that the hematoma on the top of her head has largely resolved. She denies headache or new onset of numbness or tingling in the face or extremities. Otherwise she reports that she slept well last night. She does not report right lower extremity pain. She states that she did not strike her right residual limb during the fall. Objective: Vital Signs Temp Pulse Resp BP Pulse Ox 36.7 C 67 18 126/85 H 96 07/10/18 06:27 07/10/18 08:50 07/10/18 06:27 07/10/18 08:50 07/10/18 06:27 Laboratory Results 07/06/18 06:15 07/06/18 06:15 07/09/18 07/10/18 07/11/18 05:59 05:59 05:59 Intake Total 945 930 360 Output Total 1761 1560 200 Balance -816 -630 160 Physical Exam - Physical Exam General Appearance: WD/WN, alert, no apparent distress EENT: PERRL/EOMI, other (Pupils equal round reactive to light and accommodation. No nystagmus.) Neck: non-tender, full range of motion Respiratory: lungs clear, normal breath sounds Abdomen: non-tender, soft Skin: other (Right lower extremity residual limb is inspected after the bandage is removed. Sutures and lyle in place. There is a little bit of erythema along the medial incision, without induration or erythema.) Extremities: No swelling, No Misael's sign ICD10 Worksheet Patient Problems: Problems Problem Status Onset Above knee amputation of right lower extremity Acute HTN (hypertension) Acute
[2018-07-10] MEDS: oxyCODONE IR 5 MG TAB PO PRN ×2 (11:11→21:40)
[2018-07-10] MEDS: MELATONIN 3 MG TAB PO SCH (21:40)
[2018-07-11] MEDS: ACETAMINOPHEN 500 MG TAB PO SCH ×3 (06:32→21:02)
[2018-07-11] MEDS: CARVEDILOL 25 MG TAB PO SCH ×2 (08:16→17:39)
[2018-07-11] MEDS: GABAPENTIN 300 MG CAP PO SCH ×3 (08:17→21:02)
[2018-07-11] MEDS: ASPIRIN EC 81 MG TAB PO SCH (08:17)
[2018-07-11] MEDS: LISINOPRIL 2.5 MG TAB PO SCH (08:17)
[2018-07-11] MEDS: CLOPIDOGREL BISULFATE 75 MG TAB PO SCH (08:17)
--- NOTE | 2018-07-11 10:43 | SOAPPROG ---
SOAP Progress Note Assessment/Plan: Assessment: Debility status post right-sided [id number] amputation on 06/24/2018. * Initial functional independence measure is 84 on 07/08/2018. Minimal assist for ADLs. Total assist for ambulation. * Continue PT and OT to optimize mobility and activities of daily living toward the independent to modified-independent level. Hypertension. Lisinopril 2.5 mg q.day added on 07/06/2018, 2 amlodipine 10 mg q.day and carvedilol 50 mg twice daily. Has subsequently had adequate control of blood pressure. Peripheral vascular disease. Continue aspirin and clopidogrel. Pain including phantom limb pain. Continue gabapentin, titrated to 900 mg three times daily. Continue oxycodone. * Has oxycodone CR scheduled at 10 mg twice daily. Has been using oxycodone IR 5 mg also twice a day. * Will add nortriptyline 25 mg at HS starting 07/11/2018, as the phantom pain is her main pain complaint and she would like better pain relief. Insomnia, chronic. May have had some improvement with melatonin. Observe for improved sleep with nortriptyline added. Will discontinue trazodone as it has not been helpful. Leukocytosis, anemia, and history of essential thrombocytosis. There is no malignancy. * Stable on labs 07/06/2018, relative to most recent labs from the hospital. Brisk reticulocytosis. Not iron deficient. Fall from bed, 07/10/2018. No significant injury. Hospital-acquired pneumonia appears to have been fully treated and she is not needing any oxygen at present. We will continue incentive spirometry. Diarrhea, likely was antibiotic-associated and possibly due to use of laxatives. As she is on opiates, will order senna on a p.r.n. basis. She has had a negative test for Clostridium difficile. Prophylaxis. It is unclear whether she requires any pharmacologic prophylaxis. She was treated with heparin at the hospital. Continue aspirin and clopidogrel. DISPOSITION: Lives with . Can hire private help if needed. Had home visit today 07/11/2018 regarding home modifications. Tentative discharge is set for 07/15/2018 but pending insurance approval she may stay longer. FOLLOW-UP: She is to follow up with vascular surgeon, Dr. Starr, or his physician assistant golf coach on 07/19/2018, at the Vascular [place] [facility] the [facility]. Wound lyle are to remain until she is seen in clinic. Liu-Schmid drain can be removed when output is less than 10 cc per day. The clinic phone number is [phone]. 07/11/18 13:37 Subjective: Complains of phantom limb pain. The residual limb incision bothers her occasionally also. She otherwise is not in pain. She denies cough or dyspnea, fevers or chills. Objective: Vital Signs Temp Pulse Resp BP Pulse Ox 36.4 C 68 14 129/94 H 95 07/11/18 08:00 07/11/18 08:00 07/11/18 08:00 07/11/18 08:00 07/11/18 08:00 Laboratory Results 07/06/18 06:15 07/06/18 06:15 07/10/18 07/11/18 07/12/18 05:59 05:59 05:59 Intake Total 930 1200 120 Output Total 1560 1110 Balance -630 90 120 Physical Exam - Physical Exam General Appearance: WD/WN, alert, no apparent distress Respiratory: No respiratory distress, No accessory muscle use Cardiac/Chest: No edema Skin: normal color, warm/dry, other (Minimal erythema surrounding stitches on residual limb incision; erythema has retreated from in could demarcation. Examined wounds right lower abdomen and left groin. Clean dry and intact with sutures and lyle present.) Neuro/Psych: no motor/sensory deficits, alert, normal mood/affect, oriented x 3 ICD10 Worksheet Patient Problems: Problems Problem Status Onset Above knee amputation of right lower extremity Acute HTN (hypertension) Acute
[2018-07-11] MEDS: oxyCODONE IR 5 MG TAB PO PRN (13:28)
[2018-07-11] MEDS: NORTRIPTYLINE HCL 25 MG CAP PO SCH (20:01)
[2018-07-11] MEDS: MELATONIN 3 MG TAB PO SCH (20:01)
[2018-07-12] MEDS: oxyCODONE IR 5 MG TAB PO PRN (03:29)
[2018-07-12] MEDS: ACETAMINOPHEN 500 MG TAB PO SCH ×3 (06:35→21:02)
[2018-07-12] MEDS: CARVEDILOL 25 MG TAB PO SCH ×2 (08:36→18:12)
[2018-07-12] MEDS: LISINOPRIL 2.5 MG TAB PO SCH (08:37)
[2018-07-12] MEDS: CLOPIDOGREL BISULFATE 75 MG TAB PO SCH (08:37)
[2018-07-12] MEDS: GABAPENTIN 300 MG CAP PO SCH ×3 (08:37→21:02)
[2018-07-12] MEDS: ASPIRIN EC 81 MG TAB PO SCH (08:37)
--- NOTE | 2018-07-12 12:23 | SOAPPROG ---
SOAP Progress Note Assessment/Plan: Assessment: Left hallux paronychia Left hallux abductovalgus deformity onychomycosis Plan: The left great toe lateral border is mildly inflamed from ingrown toenail and pressure of the great toe against the 2nd toe. The great toenail ingrown nail was cut in slant back fashion to remove the offending nail border. The remainder of the toenails were debrided. She is advised to soak her foot in epsom salt and warm water twice daily and apply mupirocin ointment and bandaid to the area. To separate the toes, she is advised to use a gel toe spacer or even a 2x2 gauze until she has the spacer to keep the pressure off the great toenail. 07/12/18 12:20 Subjective: Podiatry was consulted on this pleasant 73 year old female for an ingrown toenail. She is in rehab following a right leg above knee amputation. Left great toenail became inflamed last week. The nails were clipped by patient or family member and are rough. She has a bunion and has toe spacers at home. Objective: Vital Signs Temp Pulse Resp BP Pulse Ox 36.6 C 67 14 136/87 H 95 07/12/18 06:46 07/12/18 08:36 07/12/18 06:46 07/12/18 08:37 07/12/18 06:46 Laboratory Results 07/06/18 06:15 07/06/18 06:15 07/11/18 07/12/18 07/13/18 05:59 05:59 05:59 Intake Total 1200 1330 200 Output Total 1110 1470 Balance 90 -140 200 Physical Exam - Physical Exam General Appearance: alert, no apparent distress Peripheral Pulses: 1+: dorsalis-pedis (L) (weak pedal pulses) Skin: normal color Extremities: normal capillary refill (Left foot bunion deformity with pressure from 2nd toe irritating the great toenail. Lateral hallux nail border inflamed with ingrown toenail) Neuro/Psych: alert ICD10 Worksheet Patient Problems: Problems Problem Status Onset Above knee amputation of right lower extremity Acute HTN (hypertension) Acute Hallux valgus of left foot Acute Ingrown toenail of left foot Acute - ICD10 Problem Qualifiers (1) Hallux valgus of left foot (2) Ingrown toenail of left foot
--- NOTE | 2018-07-12 12:40 | SOAPPROG ---
SOAP Progress Note Assessment/Plan: Assessment: Debility status post right-sided [id number] amputation on 06/24/2018. * Initial functional independence measure is 84 on 07/08/2018. Minimal assist for ADLs. Total assist for ambulation. * Continue PT and OT to optimize mobility and activities of daily living toward the independent to modified-independent level. Hypertension. Lisinopril 2.5 mg q.day added on 07/06/2018, 2 amlodipine 10 mg q.day and carvedilol 50 mg twice daily. Has subsequently had adequate control of blood pressure. Peripheral vascular disease. Continue aspirin and clopidogrel. Pain including phantom limb pain. Continue gabapentin, titrated to 900 mg three times daily. Continue oxycodone. * Has oxycodone CR scheduled at 10 mg twice daily. Has been using oxycodone IR 5 mg also twice a day. * Will add nortriptyline 25 mg at HS starting 07/11/2018, as the phantom pain is her main pain complaint and she would like better pain relief. * With recent falls and question of over-sedation, will discontinue oxycodone CR starting 07/12/2018. Initiate tramadol at 50 mg TID for a longer lasting opioid, and will order tramadol 50 mg every 6 hr as needed. Insomnia, chronic. May have had some improvement with melatonin. Observe for improved sleep with nortriptyline added. Will discontinue trazodone as it has not been helpful. Left great toe paronychia. * Appreciate the assistance of Podiatry. Monitor for resolution. Leukocytosis, anemia, and history of essential thrombocytosis. There is no malignancy. * Stable on labs 07/06/2018, relative to most recent labs from the hospital. Brisk reticulocytosis. Not iron deficient. Fall from bed, 07/10/2018; fall in bed 07/12/2018. No significant injury. She may do better with reduced sedation with discontinuation of long-acting oxycodone. Hospital-acquired pneumonia appears to have been fully treated and she is not needing any oxygen at present. We will continue incentive spirometry. Diarrhea, likely was antibiotic-associated and possibly due to use of laxatives. As she is on opiates, will order senna on a p.r.n. basis. She has had a negative test for Clostridium difficile. Prophylaxis. It is unclear whether she requires any pharmacologic prophylaxis. She was treated with heparin at the hospital. Continue aspirin and clopidogrel. DISPOSITION: Lives with . Can hire private help if needed. Had home visit today 07/11/2018 regarding home modifications. Tentative discharge is set for 07/15/2018 but pending insurance approval she may stay longer. FOLLOW-UP: She is to follow up with vascular surgeon, Dr. Starr, or his physician water quality assistant on 07/19/2018, at the [facility] [place] [facility]. Wound lyle are to remain until she is seen in clinic. Liu-Schmid drain can be removed when output is less than 10 cc per day. The clinic phone number is [phone]. 07/12/18 12:31 Subjective: Had a fall at 6:00 a.m. today and hit her head on the corner of the bedside table. Not currently in pain from it. No loss of consciousness. Denies fevers or chills, cough or dyspnea, urinary frequency or dysuria. Other than the fall, she thinks she slept better last night, and thinks she may have some improvement in the phantom limb pain with the initiation of nortriptyline. She took oxycodone at 330 but does not recall specifically where she was hurting at that time. Objective: Vital Signs Temp Pulse Resp BP Pulse Ox 36.6 C 67 14 136/87 H 95 07/12/18 06:46 07/12/18 08:36 07/12/18 06:46 07/12/18 08:37 07/12/18 06:46 Laboratory Results 07/06/18 06:15 07/06/18 06:15 07/11/18 07/12/18 07/13/18 05:59 05:59 05:59 Intake Total 1200 1330 200 Output Total 1110 1470 Balance 90 -140 200 Physical Exam - Physical Exam General Appearance: WD/WN, alert, no apparent distress Respiratory: normal breath sounds, No crackles, No rhonchi, No wheezing Cardiac/Chest: regular rate, rhythm, systolic murmur, No edema Skin: normal color, warm/dry, other (Left great toe with erythema on the lateral aspect.) Neuro/Psych: no motor/sensory deficits, alert, normal mood/affect, oriented x 3 ICD10 Worksheet Patient Problems: Problems Problem Status Onset Above knee amputation of right lower extremity Acute HTN (hypertension) Acute Hallux valgus of left foot Acute Ingrown toenail of left foot Acute
[2018-07-12] MEDS: traMADol 50 MG TAB PO SCH ×2 (15:36→21:02)
--- NOTE | 2018-07-12 18:04 | GCON ---
REFERRING PHYSICIAN: Silvino Agudelo MD REASON FOR CONSULT: Left great toe ingrown toenail and bunion. HISTORY OF PRESENT ILLNESS: The patient is a 73-year-old female who Podiatry was consulted on for le ft great toenail ingrown toenail and bunion. She is currently in the [facility] following a right above-knee amputation on 06/24/2018. Over the last week, the patient h as complained of increased pain and tenderness over the left great toenail. She states that she has bunion spacers at home. PAST MEDICAL HISTORY: 1. Peripheral vascular disease. 2. Hypertension. 3. Rheumatic fever. 4. Peripheral neuropathy. PAST SURGICAL HISTORY: Recent right suytn-uto-nqyc amputation, history of multiple vascular angiopla sties and bypass procedures to right lower extremity. PREHOSPITAL MEDICATIONS: 1. Carvedilol. 2. Clopidogrel. 3. Amlodipine. 4. Aspirin. 5. Gabapentin. 6. Furosemide. 7. Oxycodone. ALLERGIES: No known drug allergies. REVIEW OF SYSTEMS: She has phantom limb pain on the right leg. No nausea, vomiting, fever, or chill s. PHYSICAL EXAM: Left great toenail ingrown toenail at the lateral border with mild erythema and a sma ll amount of scabbing present with the nail ingrown at this area. The patient does have a bunion def ormity and the great toe hits against the 2nd toe causing increased pressure on the ingrown toenail. Pulses are weakly palpable. Sensation decreased. ASSESSMENT AND PLAN: Left foot great toenail ingrown toenail lateral border and left hallux abductov algus deformity. We discussed treatment options today. The nails were debrided 1 through 5 of the l eft foot with a slant-back procedure performed to the left great toenail lateral border using a nail nipper. The patient is advised to soak her foot twice daily in Epsom salt and warm water and apply B actroban ointment and a Band-Aid to the area. She is advised to use a toe spacer to help separate th e great toe and the 2nd toe to decrease pressure on the ingrown toenail. If these symptoms worsen, w e may need to consider antibiotics and a nail procedure to remove the ingrown nail border. I hermes l cody to see the patient as an outpatient once she has been discharged from rehab. /[id number]/MODL
[2018-07-12] MEDS: traMADol 50 MG TAB PO PRN (18:13)
[2018-07-12] MEDS: MUPIROCIN 2% 22 GM OINT TP SCH ×2 (18:14→21:02)
[2018-07-12] MEDS: NORTRIPTYLINE HCL 25 MG CAP PO SCH (20:01)
[2018-07-12] MEDS: MELATONIN 3 MG TAB PO SCH (20:01)
[2018-07-13] MEDS: ACETAMINOPHEN 500 MG TAB PO SCH ×3 (06:24→20:50)
[2018-07-13] MEDS: traMADol 50 MG TAB PO SCH ×3 (08:14→20:52)
[2018-07-13] MEDS: CARVEDILOL 25 MG TAB PO SCH ×2 (08:16→17:56)
[2018-07-13] MEDS: LISINOPRIL 2.5 MG TAB PO SCH (08:16)
[2018-07-13] MEDS: GABAPENTIN 300 MG CAP PO SCH ×3 (08:16→20:51)
[2018-07-13] MEDS: CLOPIDOGREL BISULFATE 75 MG TAB PO SCH (08:17)
[2018-07-13] MEDS: ASPIRIN EC 81 MG TAB PO SCH (08:17)
[2018-07-13] MEDS: MUPIROCIN 2% 22 GM OINT TP SCH ×3 (08:20→21:01)
[2018-07-13] MEDS: oxyCODONE IR 5 MG TAB PO PRN ×4 (10:42→23:10)
--- NOTE | 2018-07-13 10:59 | SOAPPROG ---
SOAP Progress Note Assessment/Plan: Assessment: Debility status post right-sided riosm-trq-iqej amputation on 06/24/2018. * Initial functional independence measure is 84 on 07/08/2018. Minimal assist for ADLs. * Ambulation markedly improved, with front wheeled walker * Continue PT and OT to optimize mobility and activities of daily living toward the independent to modified-independent level. Hypertension. Lisinopril 2.5 mg q.day added 07/06/2018. Continue amlodipine 10 mg q.day and carvedilol 50 mg twice daily. Adequate control of blood pressure. Peripheral vascular disease. Continue aspirin and clopidogrel. Pain including phantom limb pain. Continue gabapentin, titrated to 900 mg three times daily. Continue oxycodone. * Has oxycodone CR scheduled at 10 mg twice daily. Has been using oxycodone IR 5 mg also twice a day. * Added nortriptyline 25 mg at HS starting 07/11/2018, as the phantom pain is her main pain complaint and she would like better pain relief. * With recent falls and question of over-sedation, discontinued oxycodone CR starting evening of 07/12/2018. Initiated tramadol at 50 mg TID for a longer lasting opioid, and will order tramadol 50 mg every 6 hr as needed. * Phantom limb pain is improving. Used p.r.n. oxycodone once yesterday, 2017, and p.r.n. tramadol once on 07/12/2018. Insomnia, chronic. May have had some improvement with melatonin. * Improved with addition of nortriptyline 07/11/2018. Discontinued trazodone. Left great toe paronychia. * Appreciate the assistance of Podiatry. Monitor for resolution. Leukocytosis, anemia, and history of essential thrombocytosis. There is no malignancy. * Stable on labs 07/06/2018, relative to most recent labs from the hospital. Brisk reticulocytosis. Not iron deficient. Fall from bed, 07/10/2018; fall in bed 07/12/2018. No significant injury. She may do better with reduced sedation with discontinuation of long-acting oxycodone. Hospital-acquired pneumonia appears to have been fully treated and she is not needing any oxygen at present. We will continue incentive spirometry. Diarrhea, likely was antibiotic-associated and possibly due to use of laxatives. As she is on opiates, will order senna on a p.r.n. basis. She has had a negative test for Clostridium difficile. Prophylaxis. It is unclear whether she requires any pharmacologic prophylaxis. She was treated with heparin at the hospital. Continue aspirin and clopidogrel. DISPOSITION: Lives with . Can hire private help if needed. Had home visit today 07/11/2018 regarding home modifications. Tentative discharge is set for 07/15/2018 but pending insurance approval she may stay longer. FOLLOW-UP: She is to follow up with vascular surgeon, Dr. Starr, or his physician behavioral modification assistant on 07/19/2018, at the [facility] [place] [facility]. Wound lyle are to remain until she is seen in clinic. Liu-Schmid drain can be removed when output is less than 10 cc per day. The clinic phone number is [phone]. 07/13/18 13:55 Subjective: Had difficulty falling asleep but subsequently for slept well. Phantom limb pain is somewhat improved. Pain did not in interfere with sleep. Otherwise without complaints. Objective: Vital Signs Temp Pulse Resp BP Pulse Ox 36.5 C 66 16 138/89 H 94 07/13/18 06:17 07/13/18 06:17 07/13/18 06:17 07/13/18 06:17 07/13/18 06:17 Laboratory Results 07/06/18 06:15 07/06/18 06:15 07/12/18 07/13/18 07/14/18 05:59 05:59 05:59 Intake Total 1330 725 270 Output Total 1470 264 350 Balance -140 461 -80 Physical Exam - Physical Exam General Appearance: WD/WN, alert, no apparent distress Respiratory: No respiratory distress, No accessory muscle use Cardiac/Chest: No edema Skin: normal color, warm/dry Neuro/Psych: no motor/sensory deficits, alert, normal mood/affect, oriented x 3 , other (Ambulates with front wheeled walker, standby assist by therapy staff.) ICD10 Worksheet Patient Problems: Problems Problem Status Onset Above knee amputation of right lower extremity Acute HTN (hypertension) Acute Hallux valgus of left foot Acute Ingrown toenail of left foot Acute
[2018-07-13] MEDS: EPSOM SALT 454 GM TP SCH ×2 (16:48→20:58)
[2018-07-13] MEDS: MELATONIN 3 MG TAB PO SCH (20:51)
[2018-07-13] MEDS: NORTRIPTYLINE HCL 25 MG CAP PO SCH (20:52)
[2018-07-14] MEDS: ACETAMINOPHEN 500 MG TAB PO SCH ×3 (05:51→21:20)
[2018-07-14] MEDS: LISINOPRIL 2.5 MG TAB PO SCH (08:35)
[2018-07-14] MEDS: GABAPENTIN 300 MG CAP PO SCH ×3 (08:35→21:21)
[2018-07-14] MEDS: CLOPIDOGREL BISULFATE 75 MG TAB PO SCH (08:36)
[2018-07-14] MEDS: traMADol 50 MG TAB PO SCH ×3 (08:36→21:19)
[2018-07-14] MEDS: ASPIRIN EC 81 MG TAB PO SCH (08:36)
[2018-07-14] MEDS: CARVEDILOL 25 MG TAB PO SCH ×2 (08:37→17:08)
[2018-07-14] MEDS: MUPIROCIN 2% 22 GM OINT TP SCH ×3 (08:38→21:27)
[2018-07-14] MEDS: oxyCODONE IR 5 MG TAB PO PRN ×2 (09:18→13:15)
[2018-07-14] MEDS: EPSOM SALT 454 GM TP SCH ×2 (09:51→18:31)
[2018-07-14] MEDS ORDERED: NORTRIPTYLINE HCL 25 MG CAP PO SCH (16:07)
--- NOTE | 2018-07-14 16:14 | SOAPPROG ---
SOAP Progress Note Assessment/Plan: Assessment: Debility status post right-sided jbxcw-ddd-[id number] amputation on 06/24/2018. * Initial functional independence measure is 84 on 07/08/2018. Improved to 106 on 07/14/2018. Independent with bed mobility. Standby assist for transfers by sit to stand or squat pivot. Needs cues for safety. Able to bump up and down stairs on her buttocks or can climb and descend 4 steps with bilateral rails. She can transfer to and from the floor in order to bump up and down steps. Car transfer requires contact guard to minimal assist. She does grooming and hygiene seated with modified independence. Upper body dressing is independent with setup, lower body dressing is supervision level with cues. Bathing and bath transfer, toileting and toilet transfer were done with standby assist. * Continue PT and OT to optimize mobility and activities of daily living toward the independent to modified-independent level. Hypertension. Lisinopril 2.5 mg q.day added 07/06/2018. Continue amlodipine 10 mg q.day and carvedilol 50 mg twice daily. Adequate control of blood pressure. Peripheral vascular disease. Continue aspirin and clopidogrel. Pain including phantom limb pain. Continue gabapentin, titrated to 900 mg three times daily. Continue oxycodone. * Had oxycodone CR scheduled at 10 mg twice daily. Has been using oxycodone IR 5 mg also twice a day. * Added nortriptyline 25 mg at HS starting 07/11/2018, as the phantom pain is her main pain complaint and she would like better pain relief. Increased to 50 mg at HS starting 07/14/2018. * With recent falls and question of over-sedation, discontinued oxycodone CR starting evening of 07/12/2018. Initiated tramadol at 50 mg TID for a longer lasting opioid, and will order tramadol 50 mg every 6 hr as needed. * Discussed titration of nortriptyline with patient and family, 07/14/2018. Encouraged her to not use oxycodone for the phantom pain. Insomnia, chronic. May have had some improvement with melatonin. * Improved with addition of nortriptyline 07/11/2018. Discontinued trazodone. Left great toe paronychia. * Appreciate the assistance of Podiatry. Monitor for resolution. Leukocytosis, anemia, and history of essential thrombocytosis. There is no malignancy. * Stable on labs 07/06/2018, relative to most recent labs from the hospital. Brisk reticulocytosis. Not iron deficient. Fall from bed, 07/10/2018; fall in bed 07/12/2018. No significant injury. She may do better with reduced sedation with discontinuation of long-acting oxycodone. Hospital-acquired pneumonia appears to have been fully treated and she is not needing any oxygen at present. We will continue incentive spirometry. Diarrhea, likely was antibiotic-associated and possibly due to use of laxatives. As she is on opiates, will order senna on a p.r.n. basis. She has had a negative test for Clostridium difficile. Prophylaxis. Much improved mobility. No need for pharmacologic DVT prophylaxis. Continue aspirin and clopidogrel. DISPOSITION: Attended staffing, 15 min. Discussed with case management, nursing, PT, OT. Attended family meeting, patient, and daughter present. Lives with . Can hire private help if needed. Had home visit 07/11/2018 regarding home modifications. Discharge 07/15/2018. FOLLOW-UP: She is to follow up with vascular surgeon, Dr. Starr, or his physician office assistant receptionist on 07/19/2018, at the [facility] [place] [facility]. Wound lyle are to remain until she is seen in clinic. Liu-Schmid drain fell out in the shower 07/14/2018. Drainage over the previous 24 hr was 3-4 cc. . The clinic phone number is [phone]. 07/14/18 16:08 Subjective: Phantom pain is improved. Sleeping well. Had some increased pain in the residual limb today. She thinks the compression wrap may have been too tight. Otherwise without complaints. Objective: Vital Signs Temp Pulse Resp BP Pulse Ox 36.6 C 63 16 121/75 H 95 07/14/18 06:01 07/14/18 08:37 07/14/18 06:01 07/14/18 08:37 07/14/18 06:01 Laboratory Results 07/06/18 06:15 07/06/18 06:15 07/13/18 07/14/18 07/15/18 05:59 05:59 05:59 Intake Total 725 4180 344 Output Total 264 3890 703 Balance 461 834 47 - Time Spent With Patient Time Spent With Patient: Greater than 35 min staff time today, including more than 50% of time in coordination of care during staffing meeting and counseling patient and family during family meeting. Physical Exam - Physical Exam General Appearance: WD/WN, alert, no apparent distress Respiratory: No respiratory distress, No accessory muscle use Skin: normal color, warm/dry, other (Incisions and drain site without dehiscence. Minimal erythema around drain site and sutures. No purulence, no drainage.) Neuro/Psych: no motor/sensory deficits, alert, normal mood/affect, oriented x 3 ICD10 Worksheet Patient Problems: Problems Problem Status Onset Above knee amputation of right lower extremity Acute HTN (hypertension) Acute Hallux valgus of left foot Acute Ingrown toenail of left foot Acute
--- NOTE | 2018-07-14 16:40 | PDOREHIP ---
Admission [facility] - Admission - 3 Day Assessment Period Admission Date/Day 1: 07/05/18 Day 2: 07/06/18 Day 3: 07/07/18 - Active Diagnoses Comorbidities and Co-existing Conditions at Admission: 43758. PVD or PAD Discharge [facility] - Discharge - 3 Day Assessment Period 2 Days Prior to Anticipated Discharge Date: 07/13/18 1 Day Prior to Anticipated Discharge Date: 07/14/18 Anticipated Discharge Date: 07/15/18 - Discharge Skin Conditions Unhealed Pressure Ulcer (1 or more/Stage 1 or >)-Discharge: 0. No # Stage 1 Pressure Ulcers-Discharge: 0 # Stage 2 Pressure Ulcers-Discharge: 0 # of These Stage 2 Pressure Ulcers Present on Admission: 0 # Stage 3 Pressure Ulcers-Discharge: 0 # of These Stage 3 Pressure Ulcers Present on Admission: 0 # Stage 4 Pressure Ulcers-Discharge: 0 # of These Stage 4 Pressure Ulcers Present on Admission: 0 # Unstageable Pressure Ulcers (Non-remove Dress)-Discharge: 0 # These Unstageable Pressure Ulcers (NRD)-Present on Admit: 0 # Unstageable Pressure Ulcers (Slough/Eschar)-Discharge: 0 # These Unstageable Pressure Ulcers(Slough) Present on Admit: 0 # Unstageable Pressure Ulcers (Deep Tissue Injury)-Discharge: 0 # These Unstageable Pressure Ulcers (DTI) Present on Admit: 0
[2018-07-14] MEDS: MELATONIN 3 MG TAB PO SCH (21:20)
[2018-07-15] MEDS: ACETAMINOPHEN 500 MG TAB PO SCH ×2 (06:23→15:30)
[2018-07-15] MEDS: CLOPIDOGREL BISULFATE 75 MG TAB PO SCH (07:54)
[2018-07-15] MEDS: GABAPENTIN 300 MG CAP PO SCH ×2 (07:54→16:26)
[2018-07-15] MEDS: traMADol 50 MG TAB PO SCH ×2 (07:55→17:03)
[2018-07-15] MEDS: ASPIRIN EC 81 MG TAB PO SCH (07:56)
[2018-07-15 08:04] VITALS: BP 128/84
[2018-07-15] MEDS: CARVEDILOL 25 MG TAB PO SCH (08:04)
[2018-07-15] MEDS: LISINOPRIL 2.5 MG TAB PO SCH (08:04)
[2018-07-15] MEDS: traMADol 50 MG TAB PO PRN ×2 (09:13→15:32)
[2018-07-15] MEDS: oxyCODONE IR 5 MG TAB PO PRN (11:58)
[2018-07-15] MEDS: MUPIROCIN 2% 22 GM OINT TP SCH ×2 (13:50→17:03)
[2018-07-15] MEDS: EPSOM SALT 454 GM TP SCH (13:50)
--- NOTE | 2018-07-15 14:18 | GDS ---
ADMITTING DIAGNOSIS: Debility, status post right leg ckxin-mgq-rayg amputation. DISCHARGE DIAGNOSIS: Debility, status post right leg cmgrm-pmv-rvps amputation. OTHER DISCHARGE DIAGNOSES: 1. Hypertension. 2. Peripheral vascular disease. 3. Phantom limb pain. 4. Left great toe paronychia. COMPLICATIONS: There were none. CONSULTATIONS: She was seen by um specialist, Dr. Lian Poon. PROCEDURES: She had nail debridement. HISTORY/HOSPITAL COURSE: This patient was admitted from [facility]. She had a prolonged hospital course with attempts at right lower limb salvage, including bypass grafts and a lwlqm-jba-rude amputation. She developed necrotic tissue at the amputation site and needed an sngru-znu-mvlf amputation. Other hospital complications included hospital-acquired pneumonia, delirium, hypertension, rhabdomyolysis, and phantom limb pain. She was eventually stabilized and ready for inpatient rehabilitation. She did well during her rehabilitation stay. Her initial functional independence measure was 84 on 07/08/2018, which is consistent with assisted living level of function. She improved to 106 on 07/14/2018, which is consistent with independent living. She was independent with bed mobility. She required standby assist for transfers, needing cues for safety. There was a home visit, and she demonstrated ability to bump up and down stairs on her buttocks. At the rehab facility, she was able to climb and descend 4 steps using bilateral rails. She was trained in how to transfer to and from the floor in order to bump up and down steps. She and her family were trained in car transfer. She was able to do grooming and hygiene seated with modified independence. Upper body dressing was independent after set-up, and lower body dressing was supervision level, requiring cues. Bathing, bath transfer, toileting, and toilet transfer were all done with standby assist. Regarding pain management, her primary issue was phantom limb pain. She was titrated on gabapentin to 900 mg 3 times a day. Subsequently, nortriptyline was added initially at 25 mg at h.s., and then at 50 mg at h.s. She had some improvement in the phantom pain. She had been treated with oxycodone CR earlier in her rehabilitation course at 10 mg twice a day, and this was discontinued partly because she was noted to be over-sedated, and she had 2 falls at night. Subsequently, pain management was primarily done with tramadol , though she occasionally used oxycodone. Regarding hypertension, she was continued on amlodipine and carvedilol. Lisinopril was added at 2.5 mg daily on 07/06/2018, with improved control over her blood pressure. She developed a paronychia in the left medial great toe. There was a podiatry consult. She had debridement of the toenails. She was treated with mupirocin to the erythematous area on the great toe, and with separation of the toes with Kerlix or other padding material. She had Epsom salt soaks. She improved symptomatically, but the pain did not completely resolve. DISCHARGE PLAN: Condition upon discharge is good. ACTIVITY: Ad jarred, but she should have supervision regarding mobility. DIET: Regular. DISCHARGE MEDICATIONS: 1. Acetaminophen 1000 mg p.o. q.8 hours. 2. Amlodipine 10 mg p.o. daily. 3. Aspirin 81 mg p.o. daily. 4. Carvedilol 50 mg p.o. b.i.d. 5. Clopidogrel 75 mg p.o. daily. 6. Gabapentin 900 mg p.o. t.i.d. 7. Lisinopril 2.5 mg p.o. daily. 8. Melatonin 3 mg p.o. q.h.s. p.r.n. 9. Mupirocin, apply to left great toe t.i.d. 10. Nortriptyline 50 mg p.o. q.h.s. 11. Oxycodone immediate release 5 mg p.o. q.4 hours p.r.n. 12. Senna 1 p.o. b.i.d. 13. Tramadol 50 mg p.o. t.i.d. scheduled and 50 mg p.o. q.6 hours p.r.n. ISSUES TO BE ADDRESSED AT FOLLOWUP: 1. Functional status. She will continue PT and OT in the home and can follow up with her primary care provider regarding her progress. 2. Status post AKA with multiple incisions still with sutures. She will follow up with vascular surgeon, Dr. Starr, at [facility] on 07/19/2018. 3. Hypertension. Continue current medications. Blood pressure on the day of discharge is 128/84. She can follow up with her primary care provider. Greater than 30 minutes was spent on this discharge, including medication reconciliation, coordination of care, and counseling the patient. Copy requested to: Dr. Starr Vascular Surgeon [facility] Dr. Reginald Mcgovern /[id number]/MODL MTDD
== END 2018-07-15 16:10 | disposition home health service (06) | DRG 560 ==
LOC: BREH 15:46
PROVIDERS: ADMIT Internal Medicine; ATTEND Internal Medicine
DX: Z47.81 Encounter for orthopedic aftercare following surgical amputation (principal); Z89.611 Acquired absence of right leg above knee; I73.9 Peripheral vascular disease, unspecified; G54.6 Phantom limb syndrome with pain; I10 Essential (primary) hypertension; G47.00 Insomnia, unspecified; D63.8 Anemia in other chronic diseases classified elsewhere; K52.1 Toxic gastroenteritis and colitis; L03.032 Cellulitis of left toe; L60.0 Ingrowing nail; M21.612 Bunion of left foot
CPT/HCPCS: 97110-GO; 97110-GP; 97112-GP; 97116-GP; 97161-GP; 97166-GO; 97530-GO; 97530-GP; 97535-GO; 97542-GP; 99366-GO

== ENCOUNTER → 2018-08-26 | Outpatient (CLI) | payer OTHER ==
--- NOTE | 2018-09-02 11:25 | CPEEG ---
DATES OF STUDY: 08/26/2018 DATE OF INTERPRETATION: September 02, 2018. INTERPRETATION: This EEG is essentially normal. There were no potentially epileptogenic abnormaliti es present during the awake or sleep recordings. REPORT: This EEG contains 10 Hz alpha activity to the posterior head regions. The background activi ty contained prominent beta frequency activity. This may reflect normal physiologic activity versus medication effect. There was no abnormal activation at rest, during photic stimulation or hyperventi lation. The patient became drowsy and fell asleep during the recording. There was no abnormal epile ptiform activation during sleep, drowsiness or during times of arousal. /[id number]/MODL
== END ==
LOC: FCPNEURO 09:55
PROVIDERS: ATTEND Psychiatry & Neurology Neurology
DX: G24.01 Drug induced subacute dyskinesia (principal)